=== PATIENT | male | born 1985 | race Caucasian/White ===

== ENCOUNTER 2017-04-13 19:09 | Emergency (ER) | payer SELFPAY ==
[~2017-04-13] VITALS: Ht 198.1 cm; Wt 105.0 kg
[2017-04-13 19:12] VITALS: BP 139/91; PULSE 79; RESP 16; TEMP 96.7; O2SAT 99
[2017-04-13] MEDS ORDERED: DILT120C9 PO (19:42)
[2017-04-13] MEDS ORDERED: PROP10TA6 PO (19:42)
[2017-04-13 19:43] VITALS: BP 137/90; PULSE 75; RESP 16; O2SAT 100
[2017-04-13] MEDS ORDERED: SODIUM CHLORIDE 0.9% FLUSH 10 ML FLUSH IVF PRN (19:45)
[2017-04-13] MEDS ORDERED: methylPREDNISolone SOD SUCC 125 MG/2 ML VIAL IV PUSH ONE (19:45)
[2017-04-13] MEDS ORDERED: diphenhydrAMINE HCL 50 MG/ML VIAL IV PUSH ONE (19:45)
[2017-04-13 19:52] LABS: AUTOMATED NEUTROPHIL # 4.3 TH/MM3 (1.8-7.7); BASOPHIL % 0.5 % (0.0-2.0); EOSINOPHIL # 0.3 TH/MM3 (0-0.4); EOSINOPHIL % 3.3 % (0.0-4.0); HEMATOCRIT 47.2 % (39.0-51.0); HEMOGLOBIN 16.6 GM/DL (13.0-17.0); LYMPH % 32.7 % (9.0-44.0); LYMPHOCYTE # 2.5 TH/MM3 (1.0-4.8); MEAN CELL VOLUME 93.9 FL (80.0-100.0); MEAN CORPUSCULAR HEMOGLOBIN 33.1 PG (27.0-34.0); MEAN CORPUSCULAR HGB CONC 35.2 % (32.0-36.0); MEAN PLATELET VOLUME 8.6 FL (7.0-11.0); MONO % 6.8 % (0.0-8.0); MONOCYTE # 0.5 TH/MM3 (0-0.9); NEUT % 56.7 % (16.0-70.0); PLATELET COUNT 222 TH/MM3 (150-450); RED BLOOD COUNT 5.03 MIL/MM3 (4.50-5.90); RED CELL DISTRIBUTION WIDTH 12.7 % (11.6-17.2); WHITE BLOOD COUNT 7.6 TH/MM3 (4.0-11.0)
[2017-04-13 19:53] VITALS: BP 145/103; PULSE 73; RESP 16; O2SAT 100
[2017-04-13 20:15] LABS: ALBUMIN 4.2 GM/DL (3.4-5.0); AST (GOT) 30 U/L (15-37); BICARBONATE 26.7 MEQ/L (21.0-32.0); BLOOD UREA NITROGEN 12 MG/DL (7-18); CHLORIDE 100 MEQ/L (98-107); CREATININE 1.13 MG/DL (0.60-1.30); GLOMERULAR FILTRATION RATE 75 ML/MIN (>89); GLUCOSE,RANDOM 101 MG/DL (74-106); SODIUM (NA) 134 MEQ/L (136-145)
[2017-04-13 20:20] LABS: PROTHROMBIN TIME - PATIENT 10.5 SEC (9.8-11.6)
[2017-04-13 20:21] LABS: ALKALINE PHOSPHATASE 86 U/L (45-117); ALT (GPT) 74 U/L (12-78); TOTAL BILIRUBIN ADULT 0.8 MG/DL (0.2-1.0); TROPONIN I LESS THAN 0.02 NG/ML (0.02-0.05)
[2017-04-13 20:24] LABS: D-DIMER LESS THAN 0.19 MG/L FEU (0.00-0.50)
[2017-04-13] MEDS ORDERED: IOHEXOL 350 MG/ML 10 ML VIAL (for RAD DIAG) IVCONTRAST ONE (20:50)
--- NOTE | 2017-04-13 21:13 | RADRPT ---
EXAM DATE/TIME: 04/13/2017 20:36 [place] COMPARISON: No previous studies available for comparison. INDICATIONS : Chest pain. History of Marfans disease. IV CONTRAST: 99 cc Omnipaque 350 (iohexol) IV RADIATION DOSE: CTDIvol (mGy) MEDICAL HISTORY : Cardiovascular disease. Marfan's disease. SURGICAL HISTORY : None. ENCOUNTER: Initial ACUITY: 1 day PAIN SCALE: 5/10 LOCATION: chest Patient was premedicated for underlying contrast media allergy. TECHNIQUE: Volumetric scanning was performed using a multi-row detector CT scanner. The data was post processed with a variety of visualization algorithms including full volume maximum intensity projection, multi -planar sliding thin slab reformation, curved planar reformation, and surface rendering techniques. Using automated exposure control and adjustment of the mA and/or kV according to patient size, radiat ion dose was kept as low as reasonably achievable to obtain optimal diagnostic quality images. DICOM format image data is available electronically for review and comparison. FINDINGS: LUNGS: There is no consolidation or pneumothorax. No concerning pulmonary nodule is visualized. No pleural fluid is present. MEDIASTINUM: No abnormally enlarged lymph nodes by CT criteria. No axillary or hilar abnormalities are identified. ABDOMEN: The liver and spleen are free of focal defects. The gallbladder and pancreas demonstrate no abnormali ty. The adrenal glands are normal. The kidneys demonstrate no evidence of solid renal mass or hydrone phrosis. No free fluid or abdominal masses are identified. No para-aortic adenopathy is seen. PELVIS: No evidence of free fluid or pelvic mass. No abnormally enlarged inguinal or retroperitoneal lymph no heather are present. The bladder is unremarkable. THORACIC AORTA: The thoracic aortic root is normal with normal branching of the great vessels. There is no evidence of aneurysm or dissection. ABDOMINAL AORTA: The aorta is normal in caliber without aneurysm or dissection. The renal arteries are patent bilater ally. The proximal celiac and superior mesenteric arteries are patent and normal in diameter. PELVIC VESSELS: The internal iliac and external iliac vessels are patent without aneurysm or stenosis. CONCLUSION: Normal examination. George Dickerson MD on April 13, 2017 at 21:08 Board Certified Radiologist. This report was verified electronically.
[2017-04-13 21:48] VITALS: BP 117/66; PULSE 79; RESP 16; O2SAT 95
[2017-04-13] MEDS ORDERED: TRAM50 PO (21:52)
--- NOTE | 2017-04-13 21:52 | PD ---
HPI . Chest pain Chief Complaint: Chest Pain Time Seen by Provider: 19:31 Travel History International Travel<30 days: No Contact w/Intl Traveler<30days: No Traveled to known affect area: No History of Present Illness HPI 31-year-old male history of Marfan's, aortic regurg, proximal atrial fibrillation, notes having left-sided chest pain rating down left arm and left neck and also through to the back. Patient has this pain intermittently, has had biannual workups for Marfan's and possible aortic dissection previously. Last CT with IV contrast patient's aorta/chest was approximately 2 years ago. Patient notes having a reaction to IV contrast for her lymph nodes get swollen for several days. Patient does not have any respiratory complaints with this, states he take some Benadryl which has some affect and relief. Patient currently denies any shortness of breath denies any orthopnea but does note worsening of pain upon lying back. Patient has no focal weakness numbness or tingling. Patient denies abdominal pain or any leg pain. [facility] Past Medical History Narrative Medical Past medical history reviewed Atrial Fibrillation: Yes Cardiovascular Problems: Yes (mitral valve prolapse) Diminished Hearing: No Medical other: Yes (Marfan syndrome) Tetanus Vaccination: > 5 Years Influenza Vaccination: No Past Surgical History Surgical History: No Previous Surgery Social History Alcohol Use: Yes (rarely) Tobacco Use: Yes (1 ppd) Substance Use: No Allergies-Medications (Allergen,Severity, Reaction): Coded Allergies: Iodinated Contrast- Oral and IV Dye (Verified Allergy, Severe, 04/13/17) LYMPHNODE SWELLING Reported Meds & Prescriptions Reported Meds & Active Scripts Active Reported Diltiazem ER 12 HR (Diltiazem HCl) 120 Mg Caper 120 Mg PO DAILY Propranolol (Propranolol HCl) 10 Mg Tab 10 Mg PO DAILY Narrative Medication Allergies and medications reviewed Review of Systems Except as stated in HPI: all other systems reviewed are Neg General / Constitutional: No: Fever Eyes: No: Visual changes HENT: No: Headaches Cardiovascular: Positive: Chest Pain or Discomfort, No: Palpitations, Irregular Rhythm, Tachycardia, Diaphoresis, Syncope, Dyspnea on exertion, Claudication Respiratory: No: Cough, Shortness of Breath, Orthopnea, Hemoptysis, Stridor, Night Sweats, Pleuritic Pain Gastrointestinal: No: Abdominal Pain Genitourinary: No: Dysuria Musculoskeletal: No: Pain Skin: No Rash Neurologic: No: Weakness Psychiatric: No: Depression Endocrine: No: Polydipsia Hematologic/Lymphatic: No: Easy Bruising Physical Exam Narrative GENERAL: Awake and alert oriented 3 no acute distress SKIN: Warm and dry. Color is normal no diaphoresis cyanosis or pallor HEAD: Atraumatic. Normocephalic. EYES: Pupils equal and round. No scleral icterus. No injection or drainage. ENT: No nasal bleeding or discharge. Mucous membranes pink and moist. NECK: Trachea midline. No JVD. Supple full range of motion nontender. No carotid bruits CARDIOVASCULAR: Regular rate and rhythm. S1-S2 no murmurs or gallops RESPIRATORY: No accessory muscle use. Clear to auscultation. Breath sounds equal bilaterally. GASTROINTESTINAL: Abdomen soft, non-tender, nondistended. Hepatic and splenic margins not palpable. MUSCULOSKELETAL: Extremities without clubbing, cyanosis, or edema. No obvious deformities. NEUROLOGICAL: Awake and alert. No obvious cranial nerve deficits. Motor grossly within normal limits. Five out of 5 muscle strength in the arms and legs. Normal speech. PSYCHIATRIC: Appropriate mood and affect; insight and judgment normal. Data Data Last Documented VS Vital Signs Date Time Temp Pulse Resp B/P (MAP) Pulse Ox O2 Delivery O2 Flow Rate FiO2 04/13/17 19:53 73 16 145/103 (117) 100 Room Air 04/13/17 19:12 96.7 Orders Orders Electrocardiogram (04/13/17 19:36) B-Type Natriuretic Peptide (04/13/17 19:36) Ckmb (Isoenzyme) Profile (04/13/17 19:36) Complete Blood Count With Diff (04/13/17 19:36) Comprehensive Metabolic Panel (04/13/17 19:36) D-Dimer (04/13/17 19:36) Magnesium (Mg) (04/13/17 19:36) Prothrombin Time / Inr (Pt) (04/13/17 19:36) Act Partial Throm Time (Ptt) (04/13/17 19:36) Troponin I (04/13/17 19:36) Ecg Monitoring (04/13/17 19:36) Bilateral Bp Monitoring (04/13/17 19:36) Iv Access Insert/Monitor (04/13/17 19:36) Oximetry (1/6/18 19:36) Oxygen Administration (04/13/17 19:36) Sodium Chloride 0.9% Flush (Ns Flush) (04/13/17 19:45) Cta Thor Abd Aorta W Iv C W3d (04/13/17 19:36) Diphenhydramine Inj (Benadryl Inj) (04/13/17 19:45) Methylprednisolone So Succ Inj (Solumedr (04/13/17 19:45) Iohexol 350 Inj (Omnipaque 350 Inj) (04/13/17 20:50) Labs Laboratory Tests Test 04/13/17 19:45 White Blood Count 7.6 TH/MM3 Red Blood Count 5.03 MIL/MM3 Hemoglobin 16.6 GM/DL Hematocrit 47.2 % Mean Corpuscular Volume 93.9 FL Mean Corpuscular Hemoglobin 33.1 PG Mean Corpuscular Hemoglobin Concent 35.2 % Red Cell Distribution Width 12.7 % Platelet Count 222 TH/MM3 Mean Platelet Volume 8.6 FL Neutrophils (%) (Auto) 56.7 % Lymphocytes (%) (Auto) 32.7 % Monocytes (%) (Auto) 6.8 % Eosinophils (%) (Auto) 3.3 % Basophils (%) (Auto) 0.5 % Neutrophils # (Auto) 4.3 TH/MM3 Lymphocytes # (Auto) 2.5 TH/MM3 Monocytes # (Auto) 0.5 TH/MM3 Eosinophils # (Auto) 0.3 TH/MM3 Basophils # (Auto) 0.0 TH/MM3 CBC Comment DIFF FINAL Differential Comment Prothrombin Time 10.5 SEC Prothromb Time International Ratio 1.0 RATIO Activated Partial Thromboplast Time 27.4 SEC D-Dimer Quantitative (PE/DVT) LESS THAN 0.19 MG/L FEU Blood Urea Nitrogen 12 MG/DL Creatinine 1.13 MG/DL Random Glucose 101 MG/DL Total Protein 8.0 GM/DL Albumin 4.2 GM/DL Calcium Level 9.0 MG/DL Magnesium Level 2.0 MG/DL Alkaline Phosphatase 86 U/L Aspartate Amino Transf (AST/SGOT) 30 U/L Alanine Aminotransferase (ALT/SGPT) 74 U/L Total Bilirubin 0.8 MG/DL Sodium Level 134 MEQ/L Potassium Level 3.6 MEQ/L Chloride Level 100 MEQ/L Carbon Dioxide Level 26.7 MEQ/L Anion Gap 7 MEQ/L Estimat Glomerular Filtration Rate 75 ML/MIN Total Creatine Kinase 93 U/L Troponin I LESS THAN 0.02 NG/ML B-Type Natriuretic Peptide LESS THAN 2 PG/ML MDM Medical Decision Making Medical Screen Exam Complete: Yes Emergency Medical Condition: Yes Medical Record Reviewed: Yes Differential Diagnosis Chest pain, atypical chest pain, aortic dissection, pleuritic pain, muscle skilled pain Narrative Course EKG normal sinus rhythm 81 bpm nonischemic intervals normal. Laboratory examinations reviewed, patient has no significant abnormalities. Notable, patient's troponin is normal as well as his d-dimer is less than 0.19 CT thoracic aorta with continuation through abdominal aortic bifurcation negative for dissection Diagnosis Primary Impression: Atypical chest pain Patient Instructions: Chest Pain (ED), General Instructions Additional Instructions: Ultram as needed for pain every 8 hours. Follow-up with your doctor. Return for worsening Scripts Tramadol (Ultram) 50 Mg Tab 50 MG PO Q8H Y for PAIN, #10 TAB 0 Refills Prov: Chuy Velazquez MD 04/13/17 Disposition: 01 DISCHARGE HOME Condition: Stable Chuy Velazquez MD Apr 13, 2017 21:52
[2017-04-13] MEDS ORDERED: traMADol HCL 50 MG TAB PO ONE (22:15)
--- NOTE | 2017-04-14 13:37 | EKG ---
Date Performed: 04/13/2017 Time Performed: 19:39:49 PTAGE: 31 years EKG: Sinus rhythm NORMAL ECG NO PREVIOUS TRACING DOCTOR: Mauro Cobian Interpretating Date/Time 04/14/2017 13:36:40
== END 2017-04-13 22:25 | disposition home or self-care (01) ==
LOC: NEPE 19:09
DX: R07.89 Other chest pain (principal); Q87.418 Marfan syndrome with other cardiovascular manifestations; I48.91 Unspecified atrial fibrillation; Z72.0 Tobacco use
CPT/HCPCS: 71275; 74174; 80053; 82550; 83735; 83880; 84484; 85025; 85379; 85610; 85730; 93005; 96374; 96375; 99285; J1200; J2930; Q9967